=== PATIENT | female | born 1995 | race Caucasian/White ===

== ENCOUNTER 2018-04-10 10:08 | Inpatient (IN) | payer MEDICAID ==
[2018-04-10] MEDS ORDERED: OXYTOCIN 30 UNITS/LR 500 ML IV ×4 (11:30→17:00)
[2018-04-10] MEDS ORDERED: MISOPROSTOL 200 MCG TAB PR ×2 (11:30→17:00)
[2018-04-10] MEDS ORDERED: METHYLERGONOVINE 0.2 MG INJ IM ×2 (11:30→17:00)
[2018-04-10] MEDS ORDERED: CARBOPROST 250 MCG INJ IM ×2 (11:30→17:00)
[2018-04-10] MEDS: LACTATED RINGER'S 1,000 ML IV ×4 (11:53→23:28)
[2018-04-10 11:56] LABS: ADD MAN DIFF? NO
[2018-04-10 12:04] LABS: BASOPHILS % 0.2 % (0.0-2.0); EOSINOPHILS # 0.1 10^3/ul (0.0-0.5); EOSINOPHILS % 0.8 % (0.0-7.0); HEMATOCRIT 37.2 % (37.0-47.0); HEMOGLOBIN 12.3 g/dl (12.0-16.0); LYMPHOCYTES # 1.7 10^3/ul (0.8-2.9); LYMPHOCYTES % 18.5 % (15.0-51.0); MEAN CORPUSCULAR HEMOGLOBIN 28.8 pg (29.0-33.0); MEAN CORPUSCULAR HGB CONC 33.1 g/dl (32.0-37.0); MEAN CORPUSCULAR VOLUME 87.1 fl (82.0-101.0); MEAN PLATELET VOLUME 11.1 fl (7.4-10.4); MONOCYTE # 0.6 10^3/ul (0.3-0.9); NEUTROPHIL # 6.6 10^3/ul (1.6-7.5); NEUTROPHILS % 73.1 % (39.0-77.0); PLATELET COUNT 233 10^3/UL (140-415); RED BLOOD COUNT 4.27 10^6/ul (4.20-5.40); RED CELL DISTRIBUTION WIDTH 13.7 % (11.5-14.5)
[2018-04-10 12:04] LABS: WHITE BLOOD COUNT 9.1 10^3/ul (4.8-10.8)
[2018-04-10 12:32] LABS: INR 0.93; PROTIME 12.5 Sec (11.9-14.9)
[2018-04-10 12:33] LABS: PARTIAL THROMBOPLASTIN TIME 26.5 Sec (25.0-35.0)
[2018-04-10] MEDS: CITRIC ACID/SODIUM CITRATE 15 ML CUP PO (12:45)
[2018-04-10 12:51] LABS: HEPATITIS B SURFACE ANTIGEN NEGATIVE (NEGATIVE)
[2018-04-10] MEDS: CEFAZOLIN 2 GM/50 ML (PMX) 50 ML IV (14:04)
[2018-04-10] MEDS ORDERED: METOCLOPRAMIDE 10 MG INJ (14:33)
[2018-04-10] MEDS ORDERED: morphine SULFATE/PF (10 MG/10 ML) INJ (14:33)
[2018-04-10] MEDS ORDERED: BUPIVACAINE 0.75%/DEXT (SPINAL) 2 ML INJ (14:35)
[2018-04-10] MEDS ORDERED: ONDANSETRON 4 MG INJ (14:43)
[2018-04-10] MEDS ORDERED: KETOROLAC 30 MG INJ (14:45)
[2018-04-10] MEDS ORDERED: FENTAnyl 50 MCG/ML VIAL (15:08)
[2018-04-10] MEDS ORDERED: EPHEDrine SULFATE 50 MG/5 ML SYG (15:13)
[2018-04-10] MEDS: OXYTOCIN 30 UNITS/LR 500 ML IV (15:47)
[2018-04-10] MEDS ORDERED: morphine 2 MG INJ IV ×3 (16:00)
[2018-04-10] MEDS ORDERED: NALOXONE (0.4 MG/ML) INJ IV ×2 (16:00→17:30)
[2018-04-10] MEDS ORDERED: DIPHENHYDRAMINE 50 MG INJ IV ×2 (16:00→17:30)
[2018-04-10] MEDS ORDERED: KETOROLAC 30 MG INJ IV (16:00)
[2018-04-10] MEDS ORDERED: ONDANSETRON 4 MG INJ IV ×3 (16:00→17:30)
[2018-04-10] MEDS ORDERED: morphine (1 MG/ML) 10ML SYRINGE IV ×3 (16:00)
[2018-04-10] MEDS ORDERED: LANOLIN 7 GM TUBE TOP (17:00)
[2018-04-10] MEDS ORDERED: NA PHOSPHATE/BIPHOS 133 ML ENEMA PR (17:00)
[2018-04-10] MEDS ORDERED: CEFAZOLIN 2 GM/50 ML (PMX) 50 ML IV (17:00)
[2018-04-10] MEDS: CLINDAMYCIN 300 MG CAP PO (18:43)
[2018-04-10] MEDS: SENNA/DOCUSATE NA (8.6MG/50MG) TAB PO (21:00)
[2018-04-10] MEDS: IBUPROFEN 800 MG TAB PO (22:00)
[2018-04-10 22:37] LABS: RAPID PLASMA REAGIN NONREACTIVE (NR)
[2018-04-10] MEDS: CEFAZOLIN 2 GM/50 ML (PMX) 50 ML IVPB (22:59)
[2018-04-11] MEDS: KETOROLAC 30 MG INJ IV ×2 (03:30→09:07)
[2018-04-11] MEDS: IBUPROFEN 800 MG TAB PO ×3 (06:00→21:40)
[2018-04-11] MEDS: CLINDAMYCIN 300 MG CAP PO ×4 (06:00→17:34)
[2018-04-11] MEDS: CEFAZOLIN 2 GM/50 ML (PMX) 50 ML IVPB ×2 (06:26→13:38)
[2018-04-11] MEDS: SENNA/DOCUSATE NA (8.6MG/50MG) TAB PO ×2 (09:07→21:40)
[2018-04-11] MEDS: LACTATED RINGER'S 1,000 ML IV ×2 (09:21→16:56)
[2018-04-11 10:31] LABS: ADD MAN DIFF? NO
[2018-04-11 10:37] LABS: WHITE BLOOD COUNT 9.8 10^3/ul (4.8-10.8)
[2018-04-11 10:37] LABS: BASOPHILS % 0.2 % (0.0-2.0); EOSINOPHILS % 0.3 % (0.0-7.0); HEMATOCRIT 34.5 % (37.0-47.0); HEMOGLOBIN 11.4 g/dl (12.0-16.0); LYMPHOCYTES # 1.1 10^3/ul (0.8-2.9); LYMPHOCYTES % 11.7 % (15.0-51.0); MEAN CORPUSCULAR HEMOGLOBIN 29.3 pg (29.0-33.0); MEAN CORPUSCULAR VOLUME 88.7 fl (82.0-101.0); MEAN PLATELET VOLUME 10.9 fl (7.4-10.4); MONOCYTE # 0.6 10^3/ul (0.3-0.9); MONOCYTES % 5.7 % (0.0-11.0); NEUTROPHILS % 81.8 % (39.0-77.0); PLATELET COUNT 198 10^3/UL (140-415); RED BLOOD COUNT 3.89 10^6/ul (4.20-5.40); RED CELL DISTRIBUTION WIDTH 13.6 % (11.5-14.5)
[2018-04-11] MEDS: BISACODYL 10 MG SUPP PR (13:37)
[2018-04-11] MEDS: OXYCODONE/ACETAMINOPHEN (5/325) TAB PO ×2 (13:55→18:09)
[2018-04-11 15:23] LABS: ADD MAN DIFF? NO
[2018-04-11 15:28] LABS: BASOPHILS % 0.2 % (0.0-2.0); EOSINOPHILS # 0.1 10^3/ul (0.0-0.5); EOSINOPHILS % 0.8 % (0.0-7.0); HEMATOCRIT 36.3 % (37.0-47.0); HEMOGLOBIN 11.7 g/dl (12.0-16.0); LYMPHOCYTES # 1.2 10^3/ul (0.8-2.9); LYMPHOCYTES % 12.9 % (15.0-51.0); MEAN CORPUSCULAR HEMOGLOBIN 28.8 pg (29.0-33.0); MEAN CORPUSCULAR HGB CONC 32.2 g/dl (32.0-37.0); MEAN CORPUSCULAR VOLUME 89.4 fl (82.0-101.0); MEAN PLATELET VOLUME 10.1 fl (7.4-10.4); MONOCYTE # 0.7 10^3/ul (0.3-0.9); NEUTROPHIL # 7.5 10^3/ul (1.6-7.5); NEUTROPHILS % 78.8 % (39.0-77.0); PLATELET COUNT 205 10^3/UL (140-415); RED BLOOD COUNT 4.06 10^6/ul (4.20-5.40); RED CELL DISTRIBUTION WIDTH 13.7 % (11.5-14.5)
[2018-04-11 15:28] LABS: WHITE BLOOD COUNT 9.6 10^3/ul (4.8-10.8)
[2018-04-12] MEDS: IBUPROFEN 800 MG TAB PO ×3 (05:38→22:28)
[2018-04-12] MEDS: CLINDAMYCIN 300 MG CAP PO ×4 (05:38→17:29)
[2018-04-12] MEDS: SENNA/DOCUSATE NA (8.6MG/50MG) TAB PO ×2 (09:16→20:40)
[2018-04-12] MEDS: HYDROCODONE/APAP (5/325) TAB PO (09:23)
[2018-04-13] MEDS: CLINDAMYCIN 300 MG CAP PO ×3 (00:25→13:14)
[2018-04-13] MEDS: HYDROCODONE/APAP (5/325) TAB PO (03:55)
[2018-04-13] MEDS: IBUPROFEN 800 MG TAB PO (05:51)
[2018-04-13] MEDS: MEASLES,MUMPS,RUBELLA VACCINE INJ SC* (09:00)
[2018-04-13] MEDS: DIPHTH/TET/ACEL PERTUSS (ADULT) 0.5 ML VIAL IM* (09:00)
[2018-04-13] MEDS: SENNA/DOCUSATE NA (8.6MG/50MG) TAB PO (09:32)
== END 2018-04-13 14:52 | disposition home or self-care (01) | DRG 766 ==
LOC: L-D 10:08 → PP1 18:13
PROVIDERS: Obstetrics & Gynecology
PROC: 10D00Z1 Extraction of Products of Conception, Low, Open Approach (ICD-10-PCS; principal; 2018-04-10 12:30)
PROC: 0UT70ZZ Resection of Bilateral Fallopian Tubes, Open Approach (ICD-10-PCS; 2018-04-10 12:30)
DX: O34.211 Maternal care for low transverse scar from previous cesarean delivery (principal); Z3A.39 39 weeks gestation of pregnancy; Z37.0 Single live birth; Z30.2 Encounter for sterilization
CPT/HCPCS: 85025; 85610; 85730; 86592; 86850; 86900; 86901; 87340; 88302